=== PATIENT | female | born 1975 | race Caucasian/White ===

== ENCOUNTER 2017-09-05 11:56 | Emergency (ER) | payer BC, SELFPAY ==
[2017-09-05 12:30] VITALS: BP 127/80; PULSE 71; RESP 16; TEMP 36.9; O2SAT 98; BMI 31.0
--- NOTE | 2017-09-05 12:54 | ED_ITS ---
HPI - Skin/Abscess/Foreign Bdy <CESAR Rivero - Last Filed: 09/05/17 22:33> General Chief complaint: Skin/Abscess/Foreign Body Stated complaint: POSSIBLY EXPOSED TO RABIES Time Seen by Provider: 09/05/17 12:36 History of Present Illness HPI narrative: 42-year-old female here with her daughter due to exposure to a bat. They are renting house for a couple of days when they noticed that there was a bat inside the house that they were staying in for a couple of days. They deny any known bites. She states that she has not received rabies vaccination in the past. No other concerns or complaints. Mother is requesting rabies vaccination. Related Data Allergies Allergy/AdvReac Type Severity Reaction Status Date / Time No Known Drug Allergies Allergy Verified 09/05/17 12:34 Review of Systems <CESAR Rivero - Last Filed: 09/05/17 22:33> Review of Systems Request rabies vaccination Eyes Denies change in vision, Denies eye discharge, Denies irritation and Denies loss of vision ENT Ears, Nose, Mouth, and Throat: Denies change in voice, Denies neck pain and Denies sore throat Cardiovascular Denies chest pain, Denies irregular heart rhythm, Denies lightheadedness, Denies palpitations, Denies dyspnea, Denies dyspnea on exertion and Denies orthopnea Respiratory Denies cough, Denies dyspnea, Denies dyspnea on exertion and Denies wheezing Gastrointestinal Gastrointestinal: Denies abdominal pain, Denies change in bowel habits, Denies diarrhea, Denies nausea and Denies vomiting Genitourinary Denies hematuria, Denies flank pain, Denies urinary incontinence and Denies urinary urgency Musculoskeletal Denies neck pain Neurologic Denies loss of vision Endocrine Denies palpitations Hematologic/Lymphatic Denies easy bruising Allergic/Immunologic Denies wheezing Exam <CESAR Rivero - Last Filed: 09/05/17 22:33> Initial Vital Signs Initial Vital Signs: Vital Signs Temperature 98.4 F 09/05/17 12:30 Pulse Rate 71 09/05/17 12:30 Respiratory Rate 16 09/05/17 12:30 Blood Pressure 127/80 H 09/05/17 12:30 Pulse Oximetry 98 09/05/17 12:30 Const General: cooperative and well developed Nutritional Appearance: well nourished Orientation: alert, awake, oriented x3 and not confused [facility] [place] Mouth: moist mucous membranes Eyes Conjunctivae: conjunctivae normal Sclera: sclerae normal Pupils: PERRL EOM: EOM intact bilaterally Resp Effort & Inspection: normal respiratory effort, able to speak in complete sentences, no respiratory distress and no use of accessory muscles Auscultation: clear to auscultation bilaterally, no rales, no rhonchi and no wheezes Cardio Rate: regular rate Rhythm: regular rhythm Heart Sounds: no click, no gallops, no murmurs and no rubs Skin General: no rashes or lesions noted, No jaundice and No petechiae Neuro General: alert, oriented x3, gait normal and no focal motor deficits Speech: speech normal <DO Bhavna Tineo Last Filed: 09/11/17 07:23> Initial Vital Signs Initial Vital Signs: Vital Signs Temperature 98.4 F 09/05/17 12:30 Pulse Rate 71 09/05/17 12:30 Respiratory Rate 16 09/05/17 12:30 Blood Pressure 127/80 H 09/05/17 12:30 Pulse Oximetry 98 09/05/17 12:30 Course <CESAR Rivero - Last Filed: 09/05/17 22:33> Orders Ordered: Discontinued Medications Rabies Immune Globulin (Hyperrab S-D) 1,589 unit 20 unit/kg (1589 unit) IM NOW ONE Stop: 09/05/17 14:19 Last Admin: 09/05/17 15:02 Dose: Rabies Immune Globulin (Hyperrab) 1,589 unit 20 unit/kg (1589 unit) IM NOW ONE Stop: 09/05/17 15:01 Last Admin: 09/05/17 15:01 Dose: 1,589 unit Rabies Vaccine (Rabavert) 2.5 units IM .ONCE ONE Stop: 09/05/17 14:19 Last Admin: 09/05/17 14:50 Dose: 2.5 units Vital Signs - 8 hr 09/05/17 15:54 Pulse Rate 89 Respiratory Rate 16 Blood Pressure 139/100 H Pulse Oximetry 100 <Ashley Villalobos DO - Last Filed: 09/11/17 07:23> Orders Ordered: Discontinued Medications Rabies Immune Globulin (Hyperrab S-D) 1,589 unit 20 unit/kg (1589 unit) IM NOW ONE Stop: 09/05/17 14:19 Last Admin: 09/05/17 15:02 Dose: Rabies Immune Globulin (Hyperrab) 1,589 unit 20 unit/kg (1589 unit) IM NOW ONE Stop: 09/05/17 15:01 Last Admin: 09/05/17 15:01 Dose: 1,589 unit Rabies Vaccine (Rabavert) 2.5 units IM .ONCE ONE Stop: 09/05/17 14:19 Last Admin: 09/05/17 14:50 Dose: 2.5 units Vital Signs - 8 hr 09/05/17 15:54 Pulse Rate 89 Respiratory Rate 16 Blood Pressure 139/100 H Pulse Oximetry 100 MDM - Skin/Abscess/Foreign Bdy <CESAR Rivero - Last Filed: 09/05/17 22:33> MDM Narrative Medical decision making narrative: [facility] recommends prophylactic rabies vaccination if that is found in side of room that person has slept in. Rabies immunoglobulin and rabies vaccine was given today. Repeat vaccinations on days 3, 7 and 14. Follow up with primary care provider. Return emergency room for any worsening symptoms. Discharge Plan Departure Patient Disposition: Home, Self-Care Clinical Impression: Rabies, need for prophylactic vaccination against Discharge Date/Time: 09/05/17 15:55 Interventions: ED Discharge Assessment Last Done: 09/05/17 15:54 Instructions: DI for Rabies Vaccine Activity Restrictions/Additional Instructions: Rabies immune globulin and rabies vaccine was given today in the emergency room. Both of you will need to have repeat rabies vaccine given on days 3, 7 and 14. Follow up with primary care provider. Return emergency room for any worsening symptoms. Referrals: [facility] [Provider Group] <Ashley Villalobos DO - Last Filed: 09/11/17 07:23> Cosign ED Attending Gemature Attestation: I was immediately available in the department for consultation. Documentation has been reviewed. I agree with assessment and plan.
--- NOTE | 2017-09-05 14:02 | PC.NURSE ---
pt reports she was sleeping and noticed on the ceiling a bat that in the house. she does not think she was bitten by the bat. she called the department of health for her daughter who may have had exposure and they advised for them to come to the department to be seen until proper testing can be done on the bat
[2017-09-05] MEDS: RABIES VACCINE (RABAVERT) 2.5 UNITS SYRINGE IM (14:50)
[2017-09-05] MEDS: RABIES IMMUNE GLOBULIN 300 UNIT/ML 1589 UNIT IM (15:01)
--- NOTE | 2017-09-05 15:43 | PC.NURSE ---
Immunoglobulin injection given in L vastus lateralis and R Dorsogluteal area. Vaccine given in L deltoid. NAD. advised to have f/u injections day 3, 7, and 14 by Lidia.
[2017-09-05 15:54] VITALS: BP 139/100; PULSE 89; RESP 16; O2SAT 100
== END 2017-09-05 15:55 | disposition home or self-care (01) ==
PROVIDERS: Emergency Provider Nurse Practitioner Family
DX: Z20.3 Contact with and (suspected) exposure to rabies (principal); Z23 Encounter for immunization
CPT/HCPCS: 90375; 90675; 96372; 99282; 99283